=== PATIENT | female | born 1990 | race Two or more races ===

== ENCOUNTER 2022-07-16 09:11 | Emergency (ER) | payer OTHER ==
[~2022-07-16] VITALS: Ht 162.6 cm; Wt 68.0 kg
== END 2022-07-16 12:49 | disposition home or self-care (01) ==
LOC: ER 09:11
DX: S29.012A Strain of muscle and tendon of back wall of thorax, initial encounter (principal); X58.XXXA Exposure to other specified factors, initial encounter; Y93.9 Activity, unspecified; Y92.9 Unspecified place or not applicable; Y99.9 Unspecified external cause status; Z20.822 Contact with and (suspected) exposure to COVID-19